=== PATIENT | female | born 1995 ===

== ENCOUNTER 2017-03-02 18:05 | Emergency (ER) | payer MEDICAID ==
[~2017-03-02] VITALS: Ht 160 cm; Wt 92.7 kg
[2017-03-02 18:06] VITALS: BP 133/81; TEMP 97.9
[2017-03-02] MEDS ORDERED: PRENATAL FORMU1 EAC3 PO (18:11)
[2017-03-02 18:42] LABS: PH 5 (5-8); SQUAMOUS EPITHELIAL 20-50 /hpf; URINE APPEARANCE Cloudy; URINE BACTERIA Rare /hpf; URINE BILIRUBIN Negative (NEGATIVE); URINE BLOOD Negative (NEGATIVE); URINE COLOR Yellow; URINE GLUCOSE Negative (NEGATIVE); URINE KETONE Negative (NEGATIVE); URINE UROBILINOGEN Negative (NEGATIVE); URINE WBC >50 /hpf
[2017-03-02 19:37] LABS: PH 5 (5-8); SQUAMOUS EPITHELIAL 0-2 /hpf; URINE APPEARANCE Clear; URINE BACTERIA None Seen /hpf; URINE BILIRUBIN Negative (NEGATIVE); URINE BLOOD Negative (NEGATIVE); URINE COLOR Yellow; URINE GLUCOSE Negative (NEGATIVE); URINE KETONE 1+ (NEGATIVE); URINE RBC 0-2 /hpf; URINE UROBILINOGEN Negative (NEGATIVE); URINE WBC 0-2 /hpf
[2017-03-02 20:27] VITALS: PULSE 86
== END 2017-03-02 20:27 | disposition home or self-care (01) ==
LOC: COL.ER 18:05
PROVIDERS: Emergency Medicine
DX: O99.89 Other specified diseases and conditions complicating pregnancy, childbirth and the puerperium (principal); Z3A.24 24 weeks gestation of pregnancy

== ENCOUNTER → 2017-04-17 | Emergency (ER) | payer MEDICAID ==
[~2017-04-17] VITALS: Ht 160 cm; Wt 96.4 kg
[~2017-04-17] MED LIST: CEPHALEXIN500 M1 PO; IBU600 MG PO; NORCO 325 MG-51 TAB PO; PRENATAL FORMU1 EAC3 PO; PRENATAL MVI
[2017-04-17 21:13] VITALS: BP 128/74; PULSE 97; TEMP 98.6
== END | disposition home or self-care (01) ==
LOC: COL.ER 21:06
DX: O99.89 Other specified diseases and conditions complicating pregnancy, childbirth and the puerperium (principal); M54.32 Sciatica, left side; Z3A.28 28 weeks gestation of pregnancy

== ENCOUNTER 2017-04-22 22:02 | Outpatient (CLI) | payer MEDICAID ==
[~2017-04-22] VITALS: Ht 160 cm; Wt 94.1 kg
[~2017-04-22 22:02] MED LIST changes: -CEPHALEXIN500 M1 PO; -IBU600 MG PO; -NORCO 325 MG-51 TAB PO; -PRENATAL MVI
[2017-04-22 22:20] VITALS: BP 142/76; PULSE 100; TEMP 98.4
[2017-04-22 22:45] VITALS: BP 105/55; PULSE 82
[2017-04-22] MEDS ORDERED: PRENATAL MVI (22:46)
== END 2017-04-22 23:46 | disposition home or self-care (01) ==
LOC: LDRO 22:02
DX: O99.89 Other specified diseases and conditions complicating pregnancy, childbirth and the puerperium (principal); R10.9 Unspecified abdominal pain; Z3A.31 31 weeks gestation of pregnancy

== ENCOUNTER 2017-06-10 22:31 | Inpatient (IN) | payer MEDICAID ==
[~2017-06-10] VITALS: Ht 160 cm; Wt 97.7 kg
[~2017-06-10 22:31] MED LIST changes: +PRENATAL MVI
[2017-06-10 22:55] VITALS: BP 138/78; PULSE 91; TEMP 98.4
[2017-06-10 23:15] VITALS: BP 135/85; PULSE 94; TEMP 98.4
[2017-06-10 23:45] VITALS: BP 140/83; PULSE 80
[2017-06-11] VITALS (25 sets, daily range): BP systolic 102–157; BP diastolic 51–89; PULSE 74–99; TEMP 97.8–98.9
[2017-06-11 00:21] LABS: BASO % 0.2 % (0.0-2.0); EOS # 0.1 (0.0-0.7); EOS % 0.9 % (0-4.0); GRAN # 6.3 (1.4-6.5); GRAN % 67.7 % (42.2-75.2); HEMOGLOBIN 12.3 g/dl (12.0-15.0); LYMPH # 2.2 (1.2-3.4); LYMPH % 23.6 % (20.0-51.0); MEAN CELL VOLUME 79 fl (80.0-95.0); MEAN CORPUSCULAR HEMOGLOBIN 26 pg (26.0-32.0); MEAN CORPUSCULAR HGB CONC 32 g/dl (33.0-37.0); MONO # 0.7 (0.1-0.6); MONO % 7.4 % (1.7-9.3); PLATELET COUNT 207 K/mm3 (130-400); RED BLOOD COUNT 4.81 M/mm3 (4.10-5.30); REDCELL DISTRIBUTION WIDTH-CV 16.2 % (11.5-14.5); WHITE BLOOD COUNT 9.2 K/mm3 (4.8-10.8)
[2017-06-12 07:25] VITALS: BP 109/56; PULSE 69; TEMP 97.7
[2017-06-12] MEDS ORDERED: IBU600 MG PO (08:35)
[2017-06-12 16:30] VITALS: BP 127/70; PULSE 80; TEMP 97.6
[2017-06-12 19:45] VITALS: BP 130/84; PULSE 86; TEMP 98.4
[2017-06-13 08:20] VITALS: BP 126/83; PULSE 78
== END 2017-06-13 12:35 | disposition home or self-care (01) | DRG 767 ==
LOC: LDRO 22:31 → OB 06-11 00:01 → LDR 06-11 00:01 → OB 06-11 09:32
PROVIDERS: Obstetrics & Gynecology
PROC: 10E0XZZ Delivery of Products of Conception, External Approach (ICD-10-PCS; principal; 2017-06-11)
PROC: 10D17ZZ Extraction of Products of Conception, Retained, Via Natural or Artificial Opening (ICD-10-PCS; 2017-06-11)
DX: O69.81X0 Labor and delivery complicated by cord around neck, without compression, not applicable or unspecified (principal); O99.824 Streptococcus B carrier state complicating childbirth; O73.1 Retained portions of placenta and membranes, without hemorrhage; O70.0 First degree perineal laceration during delivery; Z3A.38 38 weeks gestation of pregnancy; Z37.0 Single live birth
CPT/HCPCS: J0690; J2540; J2590; J7120

== ENCOUNTER 2017-07-05 15:36 | Emergency (ER) | payer MEDICAID ==
[~2017-07-05] VITALS: Ht 160 cm; Wt 96.0 kg
[~2017-07-05 15:36] MED LIST changes: +IBU600 MG PO
[2017-07-05 15:46] VITALS: BP 139/71; PULSE 92; TEMP 97.2
[2017-07-05] MEDS ORDERED: CEPHALEXIN500 M1 PO (17:12)
[2017-07-05] MEDS ORDERED: NORCO 325 MG-51 TAB PO (17:12)
== END 2017-07-05 17:25 | disposition home or self-care (01) ==
LOC: COL.ER 15:36
DX: K08.89 Other specified disorders of teeth and supporting structures (principal); L73.9 Follicular disorder, unspecified; H92.01 Otalgia, right ear